=== PATIENT | male | born 1985 | race Hispanic/Latino ===

== ENCOUNTER 2023-12-03 16:25 | Emergency (ER) | payer SELFPAY ==
[2023-12-03 16:34] VITALS: BP 137/94
[2023-12-03 16:35] LABS: Glucose - Point of Care 345 mg/dl (70-99)
[2023-12-03 16:53] LABS: % Basophils 0.6 % (0-2); % Eosinophils 0.6 % (0-6); % Immature Granulocytes 0.3 % (0-0.5); % Lymphocytes 47.8 % (20.5-51.1); % Monocytes 6.9 % (1.7-9.3); % Neutrophils 43.8 % (42.2-75.2); Absolute Basophils 0.1 10^3/uL (0-0.2); Absolute Eosinophils 0.1 10^3/uL (0-0.7); Absolute Lymphocytes 3.8 10^3/uL (1.2-3.4); Absolute Monocytes 0.5 10^3/uL (0.1-0.6); Absolute Neutrophils 3.5 10^3/uL (1.4-6.5); Hematocrit 44.9 % (39.0-52.0); Hemoglobin 15.8 g/dL (13.0-18.0); Mean Corp Hgb Conc. 35.2 g/dL (33.0-37.0); Mean Corpuscular Hgb 28.1 pg (27.0-31.0); Mean Corpuscular Volume 79.9 fL (80.0-94.0); Mean Platelet Volume 10.3 fL (7.4-10.4); Nucleated Red Blood Cells % 0 % (-); Platelet Count 283 10^3/uL (130-400); Red Blood Cell Count 5.62 10^6/uL (4.70-6.10); Red Cell Dist. Width 11.9 % (11.5-14.5); White Blood Cell Count 7.9 10^3/uL (4.8-10.8)
[2023-12-03 17:03] LABS: ALT (SGPT) 19 U/L (0-50); AST (SGOT) 19 U/L (17-59); Albumin 4.7 g/dl (3.5-5.0); Alkaline Phosphatase 87 U/L (38-126); Blood Urea Nitrogen 22 mg/dl (9-20); Calcium 9.8 mg/dl (8.4-10.2); Carbon Dioxide 28 mmol/L (22-30); Chloride 97 mmol/L (98-107); Glucose 345 mg/dl (70-99); Lipase 91 U/L (23-300); Potassium 4.5 mmol/L (3.5-5.1); Sodium 134 mmol/L (135-145); Total Bilirubin 0.8 mg/dl (0.2-1.3); Total Protein 7.2 g/dl (6.3-8.2); eGFR > 60.00
[2023-12-03 17:14] LABS: Troponin I < 0.012 ng/ml
[2023-12-03 18:24] VITALS: BP 125/88
[2023-12-03 18:25] LABS: Venous Blood Gas B.E. 1.2 mmol/L (-4 to +4); Venous Blood Gas HCO3 28.1 mmol/L (22-27); Venous Blood Gas O2 Sat % 87.5 %; Venous Blood Gas pCO2 52 mmHg (35-48); Venous Blood Gas pH 7.34 (7.32-7.43); Venous Blood Gas pO2 53 mmHg (30-50)
[2023-12-03] MEDS: NSS 1000 IV (18:28)
[2023-12-03 18:46] LABS: B-Hydroxybutyrate 0.48 mmol/L (0.02-0.27)
[2023-12-03 19:00] VITALS: BP 121/90
[2023-12-03 19:39] LABS: Glucose - Point of Care 347 mg/dl (70-99)
--- NOTE | 2023-12-03 19:47 | ED.GENMED ---
History of Present Illness
General
Chief Complaint: Fainting Sensation
Source: patient
Exam Limitations: none
Time Seen by Provider: 12/03/23 18:18
Nursing documentation reviewed up to this point in time: agreed with
History of Present Illness
History of Present Illness:
The patient is a 38-year-old male with past medical history of diabetes previously was on metformin and pioglitazone. He has not seen his primary care doctor over the past few years due to insurance issues. He claims that he is now currently
working and now does have insurance. He has had some degree of some nausea and some lightheadedness at work but he claims he has been working out and sounds he was unsure if this was from his diabetes or from overly exerting himself. Denies any
chest pain shortness of breath or additional concerns. Has been urinating more than usual and has been thirsty.
Review of Systems
Review of Systems
Allergies reviewed?: Yes
All Other Systems: ROS reviewed and negative except as documented in HPI and ROS
Phy Exam
Physical Exam
Physical Exam:
GENERAL: Alert , in no apparent distress
EYE: pupils equal and reactive
NECK: Supple, no significant adenopathy.
ENT: o/p clr, mmm.
CARDIAC: Regular rate and rhythm .
LUNGS: Clear breath sounds bilaterally, no acute respiratory distress, no wheezes/rales/rhonchi
ABDOMEN: Soft, without focal tenderness, no r/g, no cvat
NEUROLOGICAL: Alert and oriented, no focal neuro deficits
SKIN: Warm and dry, skin intact.
MUSCULOSKELETAL: No edema, well perfused.
PSYCH: Normal and appropriate interaction.
Course
Orders/Labs/Results
Orders:
Orders
12/03/23 16:35
Electrocardiogram (*1) Urgent
Reason for Study: Syncope
12/03/23 16:36
EKG- Treatment ONCE
12/03/23 16:42
Complete Blood Count/With Diff Urgent
Comprehensive Metabolic Panel Urgent
Lipase Urgent
Troponin I Urgent
12/03/23 18:12
B-Hydroxybutyrate Urgent
Venous Blood Gas Urgent
%Oxygen/Room Air: room air
12/03/23 18:19
0.9% Sodium Chloride 1000 ml [Nss] 1,000 ml IV BOLUS
12/03/23 19:25
Bedside Glucose- Treatment ONCE
Abnormal Lab Results
12/03/23 12/03/23 12/03/23
16:34 16:42 18:12
MCV 79.9 L fL
(80.0-94.0)
Absolute Lymphs (auto) 3.8 H 10^3/uL
(1.2-3.4)
VBG pCO2 52 H mmHg
(35-48)
VBG pO2 53 H mmHg
(30-50)
VBG HCO3 28.1 H mmol/L
(22-27)
Sodium 134 L mmol/L
(135-145)
Chloride 97 L mmol/L
(98-107)
BUN 22 H mg/dl
(9-20)
Glucose 345 H mg/dl
(70-99)
B-Hydroxybutyrate 0.48 H mmol/L
(0.02-0.27)
POC Glucose 345 H mg/dl
(70-99)
12/03/23
19:37
MCV
Absolute Lymphs (auto)
VBG pCO2
VBG pO2
VBG HCO3
Sodium
Chloride
BUN
Glucose
B-Hydroxybutyrate
POC Glucose 347 H mg/dl
(70-99)
12/03/23 16:42
12/03/23 16:42
Vital Signs
Initial and Last Documented VS:
Initial Vital Signs
Temp Pulse Resp BP Pulse Ox
98.0 F 100 19 137/94 98
12/03/23 16:34 12/03/23 16:34 12/03/23 16:34 12/03/23 16:34 12/03/23 16:34
Last Documented Vital Signs
Temp Pulse Resp BP Pulse Ox
98.0 F 93 14 105/85 97
12/03/23 16:34 12/03/23 20:00 12/03/23 20:00 12/03/23 20:00 12/03/23 20:00
MDM/Problems Addressed
MDM/Problems Addressed:
38-year-old male presenting to the emergency department today with concerns of some lightheadedness nausea some abdominal pain intermittently. On arrival here initial heart rate was 100 but improving to the 90s. Blood pressure normal patient
generally well-appearing denies any symptoms during my assessment. Labs were obtained that showed an elevated sugar level in the 300s but negative troponin normal EKG no anion gap normal bicarb. No evidence of DKA. It was explained certainly need
to treat his diabetes to avoid any subsequent complications. He demonstrated understanding was given information for follow-up. He was started back on his pioglitazone as this was the last medication he was on otherwise, return precautions were
given.
*Critical Care Note
Total Time (30-74mins, 75-104mins- exclusive of procedures): Not Applicable
ED Attending Note
-
Portions of this chart may have been created with voice recognition software.� Occasional wrong word or��sound alike� substitutions may have occurred due to the inherent limitations of voice recognition software.
Discharge Plan
Departure
Patient Disposition: Home (Routine Discharge)
Date of Disposition: 12/03/23
Time of Disposition: 19:48
Patient with high blood pressure during this ER visit?: No
Condition: Good
Covid-19: Not Applicable
Discharge Problem:
Diabetes
Instructions: Diabetes and diet
Prescriptions:
New
pioglitazone 15 mg tablet
15 mg PO DAILY Qty: 14 0RF
Referrals:
[facility] [Provider Group]
[facility] [Provider Group]
Stand Alone Forms: Return to Work
Activity Restrictions/Additional Instructions:
You came to the emergency department today with concerns of elevated blood sugar level. Please follow closely with the resident clinic within the next few days for reassessment please take the pioglitazone to help with your sugar level.
Immediately return for any worsening, new or concerning symptoms.
Interventions
Interventions:
*Risk Screen - Suicide Last Done: 12/03/23 20:22
*General Assessment Last Done: 12/03/23 20:22
*Neglect/Abuse Screening Last Done: 12/03/23 20:22
ED- Fall Risk Assessment Last Done: 12/03/23 18:30
*ED COVID-19 Vaccine History Last Done: 12/03/23 20:22
*Nursing Disposition Last Done: 12/03/23 20:17
ED- Cardiac Assessment Last Done: 12/03/23 18:30
ED- Neurological Assessment Last Done: 12/03/23 18:30
Discharge Date and Time
Print Language: MACEDONIAN
[2023-12-03 20:00] VITALS: BP 105/85
== END 2023-12-03 20:22 | disposition home or self-care (01) ==
LOC: EMR 16:25
PROVIDERS: Emergency Medicine; EMERGENCY PHYSICIAN Emergency Medicine
DX: E11.65 Type 2 diabetes mellitus with hyperglycemia (principal); R42 Dizziness and giddiness; R11.0 Nausea; R10.9 Unspecified abdominal pain; Z91.141 Patient's other noncompliance with medication regimen due to financial hardship
CPT/HCPCS: 99284; 96360; 80053; 82010; 82805; 82962; 83690; 84484; 85025; 93005

== ENCOUNTER 2024-05-26 04:30 | Inpatient (IN) | payer BC, SELFPAY ==
[2024-05-26 01:05] VITALS: BMI 22.8
--- NOTE | 2024-05-26 01:20 | ED.MUSCINJ ---
HPI-Injury
General
Chief Complaint: Musculo-Skeletal Complaint
Source: patient
Exam Limitations: none
Time Seen by Provider: 05/26/24 01:07
Nursing documentation reviewed up to this point in time: agreed with
History of Present Illness-Injury
Initial Injury comments:
Pleasant 38-year-old male presents via private vehicle after his right great toe started to bleed. He is diabetic but has not been on medications because he is out of insurance. He is concerned for the last day his toe has been bleeding but prior,
there is with swelling. Denies fever or chills. He does have left shoulder pain that is chronic and has been there for months. Patient states that he does not follow-up with a family doctor.
Review of Systems
Review of Systems
Allergies reviewed?: Yes
All Other Systems: ROS reviewed and negative except as documented in HPI and ROS
Constitutional: Reports fatigue
Musculoskeletal: Reports joint pain and joint swelling
Hematologic/Lymphatic: Reports bleeding
Psychiatric: Reports anxiety
Phy Exam
General Physical Exam
General Presentation: well appearing
General age: appears stated age
General Skin: warm and dry
Cardiovascular Exam
Cardiovascular Exam: regular rate/rhythm
Neurological Exam
Neurological Exam: alert and oriented x3
Musculoskeletal Exam
Musculoskeletal Exam: full ROM and neck pain
Skin Exam
Skin Exam: normal color and warm/dry
Psychiatric Exam
Psychiatric Exam: normal mood/affect
Injury Course
Orders/Labs/Results
Orders:
Orders
05/26/24 01:18
CR Foot - Right Min 3 Views Urgent
Comment:
Reason For Exam: DFU r great toe
05/26/24 02:04
Piperacillin/Tazo 4.5 Gram [Zosyn] 4.5 gram in 100 ml IV NOW
05/26/24 03:44
Vancomycin [Vancocin] 2,000 mg 0.9% Sodium Chloride 500 ml [Nss] 500 ml IV NOW
05/26/24 03:58
Add On- LAB Stat
Tests Added?: ESR, CRP
05/26/24 04:02
Admit/Transfer Patient As Directed
Co-Sign Provider:
Level of Care: Inpatient admission
Assign to:: Medical/Surgical
Physician / Group: hospitalist
Diagnosis: foot infection
Reason for Hospitalization: diabetic foot ulcer
Expected length of stay greater than two midnights?: Yes
ELOS- Estimated Length of Stay in days: 2
I certify the patient meets the requirements for IP care: Yes
PRN Pain Medication Management As Directed
May give lesser potent ordered pain med per pt: Yes
preference::
Protocol:: Medication orders for pain may be administered in a
manner that supports deferring to patient preference
when the pt is:
- Requesting an ordered lesser potent pain medication.
Least to most potent pain medications are defined
as: acetaminophen < NSAID < tramadol < opioids
(morphine, oxycodone, hydromorphone).
- Requesting a lesser dose of the same medication IF
ORDERED.
- Requesting a less intrusive route of administration
if both routes are prescribed by the provider (PO <
IV).
05/26/24 04:03
Code Status As Directed
Resuscitation Status: Full Code
05/26/24 04:07
Add On- LAB Stat
Tests Added?: Hemoglobin A1c
05/26/24 04:21
Complete Blood Count/With Diff Urgent
Comprehensive Metabolic Panel Urgent
Erythrocyte Sed Rate Urgent
Comment: ADDED
Glycohemoglobin (HgbA1c) Urgent
Lactic Acid Q4H
Comment: CANCEL 2nd LACTIC ACID IF 1st LACTIC ACID IS LESS THAN 2
PTT Urgent
Procalcitonin Urgent
PCT Algorithmm Indication: Sepsis
Prothrombin Time Urgent
Influenza A+B Rapid Molecular Urgent
WILTON Source: Nasal Swab
Specimen Description:
05/26/24 04:24
C-Reactive Protein Urgent
Comment: ADDED
COVID-19 Antigen Urgent
Source: Nasal Swab
05/26/24 05:30
Lactic Acid Q4H
Comment: CANCEL 2nd LACTIC ACID IF 1st LACTIC ACID IS LESS THAN 2
Abnormal Lab Results
05/26/24 05/26/24
04:21 04:24
Absolute Lymphs (auto) 3.6 H 10^3/uL
(1.2-3.4)
Absolute Monos (auto) 0.8 H 10^3/uL
(0.1-0.6)
Sodium 134 L mmol/L
(135-145)
Chloride 95 L mmol/L
(98-107)
Creatinine 0.6 L mg/dL
(0.7-1.3)
Glucose 299 H mg/dl
(70-99)
C-Reactive Protein 30.00 H mg/L
(0.0-10.00)
05/26/24 04:21
05/26/24 04:21
*Critical Care Note
Total Time (30-74mins, 75-104mins- exclusive of procedures): Not Applicable
Data Reviewed
Review of Other/Old Records Reveals: Other (EKG)
Source: patient
Patient Management
Social determinants of health affecting care: Living situation, Poor outpatient follow-up and Poor social support
Discussion with other providers: Hospitalist
Update Note
Update Note:
Pt has no PCP or insurance. No diabetic meds. X-ray does not show osteomyelitis. Patient does not have diabetic medications. Patient to be brought into the hospital for continued treatment and observation.
ED Attending Note
-
Portions of this chart may have been created with voice recognition software.� Occasional wrong word or��sound alike� substitutions may have occurred due to the inherent limitations of voice recognition software.
Discharge Plan
Departure
Patient Disposition: Admit
Date of Disposition: 05/26/24
Time of Disposition: 02:09
Admit to: Med/Surg
Presentation/result/management discussed w/ accepting MD/DO: Hospitalist
Condition: Fair
Discharge Problem:
Diabetic foot ulcer
Interventions
Interventions:
*Risk Screen - Suicide Last Done: 05/25/24 22:11
*General Assessment Last Done: 05/25/24 22:11
*Neglect/Abuse Screening Last Done: 05/25/24 22:11
ED- Fall Risk Assessment Last Done: 05/26/24 01:05
*ED COVID-19 Vaccine History Last Done: 05/25/24 22:11
ED-Musculoskeletal Assessment Last Done: 05/26/24 01:05
--- NOTE | 2024-05-26 03:52 | HPS.HSE ---
Family Physician
-
Family Physician: * NONE
Chief Complaint
-
Right great toe swelling and erythema
History of Present Illness
This is a 38-year-old male with past medical history of hao-jvzuvde-atjeospyh diabetes who presents to the emergency department with acute onset of drainage and swelling from the right great toe.
He reports that he has had eschar with a central dark spot similar to his left side on the right side for several weeks. He had no complaints in that foot for prior to today. Reports that he suddenly had swelling drainage from the toe. He
expressed bloody material and thought that his symptoms would improve however he continues to have numbness and ongoing drainage while at work so he came to the emergency department for evaluation.
He denies having any fevers or chills.
Patient has not been taking any diabetic control due to lack of insurance. He was recently discharged from the ED with pioglitazone but has not filled it due to insurance issues.
In the emergency department he was afebrile, blood pressure was 105/80 with a pulse of 110. A x-ray of the foot shows no foreign body and no evidence of subcutaneous gas or osteomyelitis. Labs pending
Medical History
Past Medical History
Past Medical History: Reports NIDDM
Past Surgical History: Reports Orthopedic
Social History
Tobacco: Non-smoker
Alcohol: Occasional
Drug: Marijuana
Personal: Single
Living: With Family
Employment: Employed
Family History
Family History: Diabetes
Allergies / Home Medications
Allergies reflects when Allergies were last updated in [employer].
Home Medications with original date entered in [employer]
Allergy/Medication List:
Allergies
Allergy/AdvReac Type Severity Reaction Status Date / Time
No Known Allergies Allergy Unverified 12/03/23 16:31
Home Medications
pioglitazone 15 mg tablet 15 mg PO DAILY #14 tabs 12/03/23
Review of Systems
-
Constitutional: Reports No Symptoms
EENT: Reports No Symptoms
Respiratory: Reports No Symptoms
Cardiac: Reports No Symptoms
Abdomen/GI: Reports No Symptoms
: Reports No Symptoms
Musculoskeletal: Reports Joint Pain and Joint Swelling
Skin: Reports No Symptoms
Neurological: Reports No Symptoms
Endocrine: Reports No Symptoms
Hematologic/Lymphatic: Reports No Symptoms
Psych: Reports No Symptoms
Physical Exam
Vital Signs
Vital Signs
Temp Pulse Resp Pulse Ox
97.9 F 110 16 98
05/25/24 22:11 05/25/24 22:11 05/25/24 22:11 05/25/24 22:11
Physical Exam
General: Well Developed, Well Nourished, No Apparent Distress and Comfortable
HEENT: NormoCephalic, Anicteric, Moist mucous membranes and Atraumatic
Respiratory: Clear
Cardiac: S1/S2 and Regular Rhythm
Breast: Deferred by me
GI: Soft, Non Tender and Non Distended
Rectal: Deferred by Provider
Genito-urinary: Deferred by me
Musculoskeletal: No Clubbing, No Cyanosis, No Edema and Other (Right foot great toe ulcer with small abscess and surrounding cellulitis)
Neuro: AO x 3
Hematologic/Lymphatic: No Lymphadenopathy
Psych: Calm
Data Reviewed
-
Diagnostic Radiology: Image Personally Visualized and interpreted
Old Records: Reviewed
Impression/Plan
-
IMPRESSION:
38-year-old with right toe diabetic foot ulcer and likely infection. No evidence of osteomyelitis on x-ray. There is surrounding erythema c/w with mild cellulitis. Overal is a moderate diabetic foot infection in patient with low risk of resistant
bacteria.
PLAN:
1. Diabetic foot infection
- admit to med/surg
- mrsa testing
- Vanc/unasyn for now
- check inflammatory markers
- no current evidence of osteo but there is abscess and cellulitis. ID consult. Podiatry consult (has no outpatient dental office receptionist)
2. DM II
- pioglitazone
- sliding scale insulin
DVT PPX - lovenox sq
Code status - Full Code
[2024-05-26] MEDS: ZOSYN 100 IV (04:29)
[2024-05-26 04:33] VITALS: BP 118/78
[2024-05-26 04:38] LABS: % Basophils 0.7 % (0-2); % Eosinophils 1.3 % (0-6); % Immature Granulocytes 0.3 % (0-0.5); % Lymphocytes 40.2 % (20.5-51.1); % Monocytes 8.4 % (1.7-9.3); % Neutrophils 49.1 % (42.2-75.2); Absolute Basophils 0.1 10^3/uL (0-0.2); Absolute Eosinophils 0.1 10^3/uL (0-0.7); Absolute Lymphocytes 3.6 10^3/uL (1.2-3.4); Absolute Monocytes 0.8 10^3/uL (0.1-0.6); Absolute Neutrophils 4.4 10^3/uL (1.4-6.5); Hematocrit 46.5 % (39.0-52.0); Mean Corp Hgb Conc. 34.4 g/dL (33.0-37.0); Mean Corpuscular Hgb 27.7 pg (27.0-31.0); Mean Corpuscular Volume 80.6 fL (80.0-94.0); Mean Platelet Volume 9.8 fL (7.4-10.4); Nucleated Red Blood Cells % 0 % (-); Platelet Count 269 10^3/uL (130-400); Red Blood Cell Count 5.77 10^6/uL (4.70-6.10); Red Cell Dist. Width 11.9 % (11.5-14.5)
[2024-05-26 04:54] LABS: Lactic Acid 0.9 mmol/L (0.7-2.0)
[2024-05-26 04:56] LABS: ALT (SGPT) 21 U/L (0-50); AST (SGOT) 20 U/L (17-59); Albumin 4.4 g/dl (3.5-5.0); Alkaline Phosphatase 88 U/L (38-126); Blood Urea Nitrogen 18 mg/dl (9-20); Calcium 9.3 mg/dl (8.4-10.2); Carbon Dioxide 24 mmol/L (22-30); Chloride 95 mmol/L (98-107); Estimated Creatinine Clearance > 125 ml/min; Glucose 299 mg/dl (70-99); INR 0.95; PT 13.1 Sec (11.4-14.6); Sodium 134 mmol/L (135-145); Total Bilirubin 0.5 mg/dl (0.2-1.3); eGFR > 60.00
[2024-05-26 04:57] LABS: APTT 28.4 Sec (23.4-35.0)
[2024-05-26 05:08] LABS: COVID-19 Antigen Negative (Negative)
[2024-05-26 05:23] LABS: Procalcitonin 0.06 ng/ml (0.0-0.25)
[2024-05-26] MEDS: VANCOCIN 540 MG IV (05:25)
[2024-05-26 06:58] LABS: Erythrocyte Sed Rate 17 mm/hour (0-20)
[2024-05-26] MEDS: FLUSH (NSS) 1 FLUSH IV (07:31)
[2024-05-26 08:45] LABS: Glucose - Point of Care 283 mg/dl (70-99)
[2024-05-26] MEDS: ACTOS 15 MG PO (09:00)
[2024-05-26] MEDS: NOVOLOG FLEXPEN-LOW RESISTANCE 3 UNITS SC (09:00)
[2024-05-26 09:05] VITALS: BP 127/76
[2024-05-26] MEDS: UNASYN IV (10:05)
--- NOTE | 2024-05-26 10:34 | WOUNDNOTE ---
RIGHT GREAT TOE
--- NOTE | 2024-05-26 10:35 | WOUNDNOTE ---
RIGHT GREAT TOE
--- NOTE | 2024-05-26 10:35 | WOUNDNOTE ---
RIGHT GREAT TOE
--- NOTE | 2024-05-26 10:35 | WOUNDNOTE ---
LEFT GREAT TOE
--- NOTE | 2024-05-26 10:47 | WOUNDNOTE ---
WO RN note: Patient admitted with right toe pain, swelling
See H&P for complete history.
PMH: Diabetes
Wound Location and type/assessment: Patient admitted with right pain, swelling. Patient reports draining has stopped and swelling has decreased since start of antibiotics. At time of assessment wound was dry with a .1x.1 open, pink area. We
discussed his footwear as he also has a scabbed left great toe. Patient thinks the footwear he wears for work is too small.
Appetite: Good
Pressure redistribution devices in place:
Plan: Wound was cleaned with Vashe moistened gauze and Xeroform and spandage applied for easy assessment of wound. Diabetes and impact on health was discussed at length. He stated his insurance just started in 2024 and he is agreeable to follow up
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 Will confirm orders with hospitalist and update nurse.
Updated care plan and will follow as needed.
Note to case management of equipment requested for discharge:
Recommend follow up at wound care center upon discharge.
--- NOTE | 2024-05-26 11:06 | PHA.VAN.IN ---
Assessment
- Assessment
Renal Function: Appears similar to baseline
Maximum Temperature: 98.2
Minimum Temperature: 97.9
AUC Dosing Plan
- Empiric Dosing
Initial / Loading Dose: 2000mg on 05/26 at 0525
Maintenance Regimen: 750mg Q8H
Estimated AUC (mcg*h/mL): 434
Estimated Peak (mcg*h/mL): 25.6
Estimated Trough (mcg/ml): 12
Estimated Half Life (H): 6.4
- Monitoring
No levels ordered at this time: Consider levels in next few days
Pharmacokinetics Vancomycin I
- -
Patient Age: 38
Patient Sex: Male
Vancomycin Day #: 1
Indication: Skin And Soft Tissue
Requesting Provider: TAHIR
Pertinent Antimicrobial Allergies:
NKDA
Height / Weight:
Height 5 ft 10 in
Actual Weight 72.2 kg
Pertinent Past Medical History: DM
- Vital Signs / Lab Results
Temp Pulse Resp BP Pulse Ox
98.2 F 88 16 127/76 98
05/26/24 04:33 05/26/24 04:33 05/26/24 04:33 05/26/24 09:05 05/26/24 09:05
Lab Results - Hematology
05/26/24
04:21
WBC 9.0
Lab Results - Chemistry
05/26/24
04:21
BUN 18
Creatinine 0.6 L
Estimated Creat Clear > 125
Albumin 4.4
05/26/24 05/26/24
04:21 05:30
Lactic Acid 0.9 Cancelled
Microbiology Results
05/26/24 04:21 Influenza Types A & B (TRUDY) - Final
Nasal Swab Negative for Influenza A & B, NAAT
Negative results must be combined with clinical observations
and patient history.
Nucleic Acid Amplification test (NAAT)performed on the
[employer] platform.
[2024-05-26 11:32] LABS: Glycohemoglobin (HgbA1c) 12.8 % (4.0-5.6)
[2024-05-26 12:00] VITALS: BP 128/86
[2024-05-26 12:31] VITALS: BP 128/86; BMI 23.1
[2024-05-26] MEDS: NOVOLOG FLEXPEN-LOW RESISTANCE 4 UNITS SC (13:01)
[2024-05-26 13:10] LABS: Glucose - Point of Care 312 mg/dl (70-99)
--- NOTE | 2024-05-26 13:30 | CON.ID ---
Consultation
-
Date/Time Consultation Requested: May 26, 2024 3445
Date/Time Consultation Performed: May 26, 2024 1330
Requesting Provider: Dr. merissa Salcedo
Performing Provider: Dr. Niurka Hand
Reason for Consultation: Diabetic foot infection
Chief Complaint / Past History
Chief Complaint
Toe wound drainage
History of Present Illness
38-year-old male with history of uncontrolled diabetes mellitus currently not on therapy due to lack of insurance who presented to the ER May 25 with draining toe wound. Patient reports that he has a callus on the bottom of his right great toe
with a small scab for long time. 2 days ago the toe became very swollen red and painful. There was a blood blister over the previous scab. His coworker instructed him to push the fluid out. He applied alcohol and then with a gauze, expressed
blood mixed with clear fluid. After work he removed his shoe and noted worsening swelling and redness. He came to the ER. No fevers or chills. He denies neuropathy. He was given vancomycin, 1 dose of Zosyn, then Unasyn. Unasyn changed to
cefepime and metronidazole today. Patient reports since being on antibiotic, the toe has significantly improved. Redness has decreased. No significant drainage now. MRI negative for osteomyelitis. 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 His insurance has now kicked in since the new year.
Past History
Additional Past Medical History:
DM
Allergy History:
No Known Allergies Allergy (Unverified 12/03/23 16:31)
Medications Reviewed: Yes
Current Antibiotics:
Vancomycin
cefepime
metronidazole
Social History
Tobacco: Non-Smoker
Alcohol: Occasional
Drug: Marijuana
Personal: Single
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
Family History
Family History: Not Pertinent
Review of Systems
Review of Systems
General: Negative Fever, Chills or Change in Appetite
Cardiovascular: Negative Chest Pain or Dyspnea
Respiratory: Negative Dyspnea or Cough
Gasteroenterology: Negative Nausea, Vomiting or Diarrhea
Genital / Urological: Negative Dysuria or Flank Pain
Endocrine: Negative Weakness
Skin / Hair / Nails: Negative Rash
All systems: All other systems were reviewed and were negative
Vital Signs
Temp Pulse Resp BP Pulse Ox
97.9 F 85 16 128/86 100
05/26/24 12:00 05/26/24 12:00 05/26/24 12:00 05/26/24 12:00 05/26/24 12:00
Physical Exam
Physical Exam
Constitutional: No Acute Distress and Comfortable
Eyes: No Conjunctival Hemorrhage and Sclera Anicteric
Cardiovascular: Regular Rate and S1/S2
Pulmonary: Clear
Gastrointestinal: Soft, Non Tender, Non Distended and Normal Bowel Sounds
Genito-Urinary: Negative CVA Tenderness
Extremities: Pulses (Strong dorsalis pedal pulses bilaterally); Negative Edema
Wound: Other (Plantar aspect of right hallux, small wound with granulation tissue at base, + surrounding erythema extending to dorsal toe and first met head)
Neurological: AO x 3
Lab / Diagnostic Study Results
05/26/24 04:21
05/26/24 04:21
Abs Immat Gran (auto) 0.0 10^3/uL (0-0.05) 05/26/24 04:21
Absolute Neuts (auto) 4.4 10^3/uL (1.4-6.5) 05/26/24 04:21
Absolute Lymphs (auto) 3.6 10^3/uL (1.2-3.4) H 05/26/24 04:21
Absolute Monos (auto) 0.8 10^3/uL (0.1-0.6) H 05/26/24 04:21
Absolute Basos (auto) 0.1 10^3/uL (0-0.2) 05/26/24 04:21
Immature Gran % 0.3 % (0-0.5) 05/26/24 04:21
Neutrophils % 49.1 % (42.2-75.2) 05/26/24 04:21
Lymphocytes % 40.2 % (20.5-51.1) 05/26/24 04:21
Monocytes % 8.4 % (1.7-9.3) 05/26/24 04:21
Eosinophils % 1.3 % (0-6) 05/26/24 04:21
Basophils % 0.7 % (0-2) 05/26/24 04:21
ESR 17 mm/hour (0-20) 05/26/24 04:21
PT 13.1 Sec (11.4-14.6) 05/26/24 04:21
INR 0.95 05/26/24 04:21
Lactic Acid Cancelled 05/26/24 05:30
C-Reactive Protein 30.00 mg/L (0.0-10.00) H 05/26/24 04:24
Procalcitonin 0.06 ng/ml (0.0-0.25) 05/26/24 04:21
Microbiology Results
Micro:
05/26/24 04:21 Influenza Types A & B (TRUDY) - Final
Nasal Swab Negative for Influenza A & B, NAAT
Negative results must be combined with clinical observations
and patient history.
Nucleic Acid Amplification test (NAAT)performed on the
[employer] platform.
05/26/24 MRI LE: Superficial localized soft tissue edema versus a skin blister at the medial aspect of the distal first toe. Recommend direct visualization. Mild bone marrow edema in the first distal phalanx without T1 hypointense marrow replacement.
Reactive bone marrow edema would be favored over the early changes of acute osteomyelitis.
Assessment / Plan
# Moderate diabetic foot infection of the right great toe
# Uncontrolled diabetes mellitus, A1c 12.8
- MRI no osteomyelitis
- Can continue Vancomycin, cefepime, metronidazole for now.
- recommend tight glucose control.
--- NOTE | 2024-05-26 13:40 | W.PN.HOSP.TC ---
Today's Communication/Plan
-
Podiatry eval
ID eval
Start Insulin
Assessment / Plan
Assessment / Plan
Right big toe swelling and erythema
Foot x-ray reviewed by me- soft tissue swelling with subcutaneous gas no osteo.
MRI- Superficial localized soft tissue edema versus a skin blister at the medial aspect of the distal first toe. Recommend direct visualization.
Mild bone marrow edema in the first distal phalanx without T1 hypointense marrow replacement. Reactive bone marrow edema would be favored over the early changes of acute osteomyelitis.
Pleasant
Awake alert oriented
Cardiovascular system S1-S2 appreciated
Chest clear to auscultation
Right foot big toe with an ulcer enlargement of the big toe and edema noted
Dry ulcer on the medial aspect of the left big toe
# Diabetic foot infection
Started on vancomycin
Change Unasyn to cefepime
MRI of the foot-with early osteomyelitis of the distal phalanx
ID and podiatry has been consulted
May need partial amputation versus long-term antibiotics
Tight control of blood sugars discussed with the patient
Patient may need fitted shoes through podiatry office
# Diabetes-on pioglitazone as outpatient
Could not tolerate metformin
Stop pioglitazone
Start Lantus and NovoLog
Accu-Cheks and sliding scale coverage
Diabetic education, dietary consultation
Teach patient how to do insulin
# Mild hyponatremia-follow likely secondary to elevated sugars
# DVT prophylaxis-Lovenox
# Full code
Discussed with nursing
Long discussion about complications of diabetes and how he needs to take care of it. Patient did not have insurance and got insurance on May 24 therefore determined to take care of himself.
Anticipated Discharge: > 48 hours
Subjective/Interval History
-
Date of Service: May 26, 2024
Objective Data
-
Labs:
Laboratory Results
05/26/24
04:21
WBC 9.0
Hgb 16.0
Hct 46.5
Plt Count 269
PT 13.1
INR 0.95
APTT 28.4
Sodium 134 L
Potassium 4.0
Chloride 95 L
Carbon Dioxide 24
BUN 18
Creatinine 0.6 L
Glucose 299 H
Calcium 9.3
Total Bilirubin 0.5
AST 20
ALT 21
Alkaline Phosphatase 88
Vital Signs:
Vital Signs
Temp Pulse Resp BP Pulse Ox
97.9 F 85 16 128/86 100
05/26/24 12:00 05/26/24 12:00 05/26/24 12:00 05/26/24 12:00 05/26/24 12:00
[2024-05-26] MEDS: NOVOLOG FLEXPEN 5 UNITS SC ×2 (14:03→18:00)
--- NOTE | 2024-05-26 14:22 | CM ---
CM Consult completed; Attending Notified
Per [facility], Novolog Insulin is covered by patient's insurance; Lantus is not covered; alternative for Lantus given to Pharmacy is Semglee
[2024-05-26] MEDS: FLAGYL 500 MG 100 IV ×2 (15:02→21:43)
[2024-05-26 16:00] VITALS: BP 139/85
--- NOTE | 2024-05-26 16:15 | CM ---
Addendum entered by Isabela Rivera 05/26/24 16:31:
Insurance information sent to Admissions
Original Note:
Met with patient at bedside in 1 Acute
Family Physician: none at this time; employer provided a list of PCPs in his insurance network
Pharmacy verified: [facility] @ [address], [place]
Patient lives with his significant other and 2 children in an apartment 6 steps to enter bldg then 4 steps down to apartment; bath has tub w/ shower
PLOF; reported he was independent with ambulation, stairs, and ADLs;
Will transport self home
NO history of SNF or Home Health utilization
NO DME
Diabetes RN Educator provided a Glucometer
Plan: Discharge to home when medically stable
[2024-05-26] MEDS: MAXIPIME 1000 MG IV (16:27)
[2024-05-26] MEDS: VANCOCIN 150 IV ×2 (16:28→23:15)
[2024-05-26] MEDS: STERILE WATER FOR INJECTION 10 ML IV (16:28)
[2024-05-26] MEDS: NOVOLOG FLEXPEN-LOW RESISTANCE 2 UNITS SC (18:00)
[2024-05-26] MEDS: LOVENOX 40 MG SC (18:00)
--- NOTE | 2024-05-26 18:07 | PTCARENOTE ---
Met with [facility] to educate him on glucose monitoring and insulin administration. He was diagnosed a few years ago with type 2 diabetes but not following any practitioner or checking blood sugars due to lack of insurance. He had stopped taking his
Metformin after recently starting it due to diarrhea. We reviewed diabetes and glucose monitoring. I gave him a One Touch Verio meter and he demonstrated proper technique doing a fingerstick. Discussed normal glucose ranges. Instructed him on types
of insulin and injection technique with the insulin pens. Will encourage him to do all injections will admitted. Discussed hypoglycemia recognition and treatment. Written material provided for reinforcement. Information for outpatient diabetes
education provided.
[2024-05-26 18:10] LABS: Glucose - Point of Care 213 mg/dl (70-99)
[2024-05-26 21:35] LABS: Glucose - Point of Care 209 mg/dl (70-99)
[2024-05-26] MEDS: LANTUS 0.12 UNITS SC (21:42)
[2024-05-26] MEDS: TYLENOL 650 MG PO (21:54)
[2024-05-26 23:36] VITALS: BP 108/71
[2024-05-27] MEDS: MAXIPIME 1000 MG IV ×3 (00:14→16:37)
[2024-05-27] MEDS: STERILE WATER FOR INJECTION 10 ML IV ×3 (00:14→16:37)
[2024-05-27] MEDS: FLAGYL 500 MG 100 IV ×3 (05:10→21:09)
[2024-05-27] MEDS: VANCOCIN 150 IV ×3 (06:10→22:20)
[2024-05-27 07:00] VITALS: BP 118/74
[2024-05-27 07:50] LABS: Blood Urea Nitrogen 17 mg/dl (9-20); Carbon Dioxide 29 mmol/L (22-30); Chloride 97 mmol/L (98-107); Estimated Creatinine Clearance > 125 ml/min; Glucose 239 mg/dl (70-99); Potassium 4.5 mmol/L (3.5-5.1); Sodium 136 mmol/L (135-145); eGFR > 60.00
--- NOTE | 2024-05-27 09:06 | PHA.VAN.FU ---
Vancomycin Assessment / Plan
- Assessment
Renal Function: SCR Increasing
In the past 24 hrs, patient has been: Afebrile
Concomitant Antimicrobials: Cefepime, metronidazole
- Dosing Plan
Continue: Vanc 750mg IV q8H
- Monitoring Plan
Peak Level: 1/5 at 0030
Trough Level: 1/5 at 0530
- Follow Up
Pharmacy will continue to follow.
Vancomycin Follow UP
- -
Patient Age: 38
Patient Sex: Male
Vancomycin Day #: 2
Indication: Skin And Soft Tissue
Requesting Provider: TAHIR
Pertinent Antimicrobial Allergies:
NKDA
Height / Weight:
Height 5 ft 10 in
Actual Weight 73.17 kg
Pertinent Past Medical History: DM
- Vital Signs / Lab Results
Temp Pulse Resp BP Pulse Ox
97.7 F 79 18 118/74 97
05/27/24 07:00 05/27/24 07:00 05/27/24 07:00 05/27/24 07:00 05/27/24 07:00
Lab Results - Hematology
05/26/24
04:21
WBC 9.0
Lab Results - Chemistry
05/26/24 05/27/24
04:21 06:36
BUN 18 17
Creatinine 0.6 L 0.7
Estimated Creat Clear > 125 > 125
Albumin 4.4
05/26/24 05/26/24
04:21 05:30
Lactic Acid 0.9 Cancelled
Microbiology Results
05/26/24 04:21 Influenza Types A & B (TRUDY) - Final
Nasal Swab Negative for Influenza A & B, NAAT
Negative results must be combined with clinical observations
and patient history.
Nucleic Acid Amplification test (NAAT)performed on the
[employer] platform.
[2024-05-27] MEDS: ACTOS 15 MG PO (09:35)
[2024-05-27] MEDS: NOVOLOG FLEXPEN-LOW RESISTANCE 3 UNITS SC (09:36)
[2024-05-27] MEDS: NOVOLOG FLEXPEN 7 UNITS SC ×3 (09:36→17:41)
[2024-05-27] MEDS: NOVOLOG FLEXPEN SC (09:42)
[2024-05-27 09:50] LABS: Glucose - Point of Care 268 mg/dl (70-99)
[2024-05-27 12:07] LABS: Glucose - Point of Care 160 mg/dl (70-99)
--- NOTE | 2024-05-27 12:31 | W.PN.HOSP.TC ---
Today's Communication/Plan
-
Increase NovoLog and Lantus
Podiatry evaluation
Continue antibiotics
Note for work given
Assessment / Plan
Assessment / Plan
Right big toe swelling and erythema
Foot x-ray reviewed by me- soft tissue swelling with subcutaneous gas no osteo.
MRI- Superficial localized soft tissue edema versus a skin blister at the medial aspect of the distal first toe. Recommend direct visualization.
Mild bone marrow edema in the first distal phalanx without T1 hypointense marrow replacement. Reactive bone marrow edema would be favored over the early changes of acute osteomyelitis.
Pleasant
Awake alert oriented
Cardiovascular system S1-S2 appreciated
Chest clear to auscultation
Right foot big toe with an ulcer enlargement of the big toe and edema noted
Dry ulcer on the medial aspect of the left big toe
# Diabetic foot infection
Started on vancomycin
Change Unasyn to cefepime
MRI of the foot-with early osteomyelitis of the distal phalanx?
ID eval [id number]
Podiatry eval
Tight control of blood sugars discussed with the patient
Patient may need fitted shoes through podiatry office
# Diabetes-on pioglitazone as outpatient
Could not tolerate metformin
Stop pioglitazone
Start Lantus and NovoLog
Accu-Cheks and sliding scale coverage
Diabetic education, dietary consultation
Teach patient how to do insulin
# Mild hyponatremia-follow likely secondary to elevated sugars
# DVT prophylaxis-Lovenox
# Full code
Discussed with nursing at bed side
Long discussion about complications of diabetes and how he needs to take care of it. Patient did not have insurance and got insurance on May 24 therefore determined to take care of himself.
Anticipated Discharge: Within 24 hours
Subjective/Interval History
-
Date of Service: May 27, 2024
Objective Data
-
Labs:
Laboratory Results
05/27/24
06:36
Sodium 136
Potassium 4.5
Chloride 97 L
Carbon Dioxide 29
BUN 17
Creatinine 0.7
Glucose 239 H
Calcium 9.0
Vital Signs:
Vital Signs
Temp Pulse Resp BP Pulse Ox
97.7 F 79 18 118/74 97
05/27/24 07:00 05/27/24 07:00 05/27/24 07:00 05/27/24 07:00 05/27/24 07:00
I&O
05/26/24 05/27/24 05/28/24
06:59 06:59 06:59
Intake Total 980 / 980
Balance 980 / 980
[2024-05-27] MEDS: NOVOLOG FLEXPEN-LOW RESISTANCE 1 UNITS SC (12:58)
--- NOTE | 2024-05-27 13:05 | W.PN.ID1 ---
Date of Service
Date of Service: May 27, 2024
Today's Communication
If dc home today, can transition to Augmentin 875mg po bid and doxycycline 100mg pi bid through 06/01/24.
Assessment / Plan
# Moderate diabetic foot infection of the right great toe
# Uncontrolled diabetes mellitus, A1c 12.8
- MRI no osteomyelitis
-Cellulitis improving
- Can transition Vancomycin, cefepime, metronidazole for now to Augmentin 875mg po bid and doxycycline 100mg pi bid through 06/01/24.
- recommend tight glucose control.
Chief Complaint
-: Cellulitis
Subjective / Review of Systems
Toe is better.
c/o left shoulder pain (work-related) x several weeks. For XRAY
Vital Signs / Physical Exam
Vital Signs
Vital Signs
Temp Pulse Resp BP Pulse Ox
97.7 F 79 18 118/74 97
05/27/24 07:00 05/27/24 07:00 05/27/24 07:00 05/27/24 07:00 05/27/24 07:00
Physical Exam
Constitutional: No Acute Distress and Comfortable
Musculoskeletal: Other (left shoulder no erythema/warmth/effusion)
Wound: Other (Plantar aspect of right hallux, small wound with dried blood, decreased surrounding erythema extending to dorsal toe and first met head)
Neurological: AO x 3
Objective Data
Lab Data
Lab Results
05/26/24 04:21
05/27/24 06:36
ESR 17 mm/hour (0-20) 05/26/24 04:21
PT 13.1 Sec (11.4-14.6) 05/26/24 04:21
INR 0.95 05/26/24 04:21
APTT 28.4 Sec (23.4-35.0) 05/26/24 04:21
Estimated Creat Clear > 125 ml/min 05/27/24 06:36
Lactic Acid Cancelled 05/26/24 05:30
Total Bilirubin 0.5 mg/dl (0.2-1.3) 05/26/24 04:21
AST 20 U/L (17-59) 05/26/24 04:21
ALT 21 U/L (0-50) 05/26/24 04:21
Alkaline Phosphatase 88 U/L (38-126) 05/26/24 04:21
C-Reactive Protein 30.00 mg/L (0.0-10.00) H 05/26/24 04:24
Most recent labs reviewed.
Micro Results:
05/26/24 16:08 MRSA Screen - Pending
Nose
05/26/24 04:21 Influenza Types A & B (TRUDY) - Final
Nasal Swab Negative for Influenza A & B, NAAT
Negative results must be combined with clinical observations
and patient history.
Nucleic Acid Amplification test (NAAT)performed on the
[employer] platform.
05/26/24 MRI LE: Superficial localized soft tissue edema versus a skin blister at the medial aspect of the distal first toe. Recommend direct visualization. Mild bone marrow edema in the first distal phalanx without T1 hypointense marrow replacement.
Reactive bone marrow edema would be favored over the early changes of acute osteomyelitis.
[2024-05-27] MEDS: TYLENOL 650 MG PO (14:18)
[2024-05-27 15:00] VITALS: BP 122/73
[2024-05-27] MEDS: LIDOCAINE 4% PATCH 1 PATCH TOPICAL (16:37)
[2024-05-27 17:12] LABS: Glucose - Point of Care 138 mg/dl (70-99)
[2024-05-27] MEDS: NOVOLOG FLEXPEN-LOW RESISTANCE SC (17:14)
[2024-05-27] MEDS: LOVENOX 40 MG SC (17:42)
[2024-05-27] MEDS: LANTUS 0.15 UNITS SC (21:10)
[2024-05-27 21:19] LABS: Glucose - Point of Care 303 mg/dl (70-99)
[2024-05-27 23:05] VITALS: BP 109/74
[2024-05-28] MEDS: STERILE WATER FOR INJECTION 10 ML IV (00:34)
[2024-05-28] MEDS: MAXIPIME 1000 MG IV (00:34)
[2024-05-28 01:16] LABS: Vancomycin Peak 15.3 ug/ml (18-26)
[2024-05-28] MEDS: TYLENOL 650 MG PO ×2 (01:50→08:28)
[2024-05-28] MEDS: FLAGYL 500 MG 100 IV (05:24)
[2024-05-28 06:17] LABS: Vancomycin Trough 7.8 ug/ml (5-20)
[2024-05-28] MEDS: VANCOCIN 150 IV (06:40)
[2024-05-28 07:00] VITALS: BP 108/72
--- NOTE | 2024-05-28 07:26 | PHA.VAN.FU ---
Vancomycin Assessment / Plan
- Assessment
Renal Function: No New Labs Today
In the past 24 hrs, patient has been: Afebrile
Concomitant Antimicrobials: Cefepime, metronidazole
- Assessment - Therapeutic Drug Monitoring
Extrapolated Cmax (mcg/mL): 18.1
Peak level was drawn: Appropriately
Extrapolated Cmin (mcg/mL): 6.8
Trough Drawn: Appropriately
Levels were drawn: At steady state
Calculated AUC (mcg*h/mL): 280
Calculated ke: 0.1389
Calculated half life (H): 5
Calculated Vd (L): 57.75
Calculated Vanc CL (ml/min): 133.69
- Dosing Plan
Adjust Regimen to: Vanc 1000mg IV q8H. Begin at 1400
New Regimen Predicts: AUC (400), Peak (25.8), Trough (9.8)
- Monitoring Plan
Level(s) appropriate: Recheck trough at minimum of weekly intervals, Repeat sooner for changes in renal function or clinical status
- Follow Up
Pharmacy will continue to follow.
Vancomycin Follow UP
- -
Patient Age: 38
Patient Sex: Male
Vancomycin Day #: 3
Indication: Skin And Soft Tissue
Requesting Provider: TAHIR
Pertinent Antimicrobial Allergies:
NKDA
Height / Weight:
Height 5 ft 10 in
Actual Weight 73.17 kg
Pertinent Past Medical History: DM
- Vital Signs / Lab Results
Temp Pulse Resp BP Pulse Ox
98.3 F 77 16 109/74 98
05/27/24 23:05 05/27/24 23:05 05/27/24 23:05 05/27/24 23:05 05/27/24 23:05
Lab Results - Hematology
05/26/24
04:21
WBC 9.0
Lab Results - Chemistry
05/26/24 05/27/24
04:21 06:36
BUN 18 17
Creatinine 0.6 L 0.7
Estimated Creat Clear > 125 > 125
Albumin 4.4
05/26/24 05/26/24
04:21 05:30
Lactic Acid 0.9 Cancelled
Microbiology Results
05/26/24 04:21 Influenza Types A & B (TRUDY) - Final
Nasal Swab Negative for Influenza A & B, NAAT
Negative results must be combined with clinical observations
and patient history.
Nucleic Acid Amplification test (NAAT)performed on the
[employer] platform.
Therapeutic Drug Monitoring
Vancomycin Peak 15.3 ug/ml (18-26) L 05/28/24 00:32
Vancomycin Trough 7.8 ug/ml (5-20) 05/28/24 05:23
--- NOTE | 2024-05-28 08:10 | VATNOTE ---
Called by PCN for 11.5 cm x 5 cm vancomycin infiltrate. Heat applied immediately by PCN and this nurse came to assess the infiltrate immediately. Pt with significant discomfort, redness, and slight induration at this time. Marked and measured by
this nurse. Contacted with information for hyaluronidase order.
[2024-05-28] MEDS: LIDOCAINE 4% PATCH 1 PATCH TOPICAL (08:28)
[2024-05-28 08:30] VITALS: BP 122/85
[2024-05-28] MEDS: HYLENEX 150 UNITS SC (08:46)
[2024-05-28 09:00] VITALS: BP 128/85
--- NOTE | 2024-05-28 09:09 | W.PN.ID1 ---
Date of Service
Date of Service: May 28, 2024
Today's Communication
Transition Vancomycin, cefepime, metronidazole to Augmentin 875mg po bid and doxycycline 100mg pi bid through 06/01/24.
Assessment / Plan
# RUE phlebitis
- peripheral IV dc'd
- Continue warm compress
# Moderate diabetic foot infection of the right great toe
# Uncontrolled diabetes mellitus, A1c 12.8
- MRI no osteomyelitis
-Cellulitis improving
- no need for IV access.
- Transition Vancomycin, cefepime, metronidazole to Augmentin 875mg po bid and doxycycline 100mg pi bid through 06/01/24.
- recommend tight glucose control.
Chief Complaint
-: Cellulitis
Subjective / Review of Systems
IV Vancomycin infiltrated left forearm + pain.
Vital Signs / Physical Exam
Vital Signs
Vital Signs
Temp Pulse Resp BP Pulse Ox
97.5 F 85 16 122/85 99
05/28/24 08:30 05/28/24 08:30 05/28/24 08:30 05/28/24 08:30 05/28/24 08:30
Physical Exam
Constitutional: Non-toxic
Extremities: Other (left forearm + induration and pink erythema over previous pIV)
Wound: Other (Right great toe decreasing erythema, plantar wound with dried blood)
Neurological: AO x 3
Objective Data
Lab Data
Lab Results
05/26/24 04:21
ESR 17 mm/hour (0-20) 05/26/24 04:21
PT 13.1 Sec (11.4-14.6) 05/26/24 04:21
INR 0.95 05/26/24 04:21
APTT 28.4 Sec (23.4-35.0) 05/26/24 04:21
Estimated Creat Clear > 125 ml/min 05/27/24 06:36
Lactic Acid Cancelled 05/26/24 05:30
Total Bilirubin 0.5 mg/dl (0.2-1.3) 05/26/24 04:21
AST 20 U/L (17-59) 05/26/24 04:21
ALT 21 U/L (0-50) 05/26/24 04:21
Alkaline Phosphatase 88 U/L (38-126) 05/26/24 04:21
C-Reactive Protein 30.00 mg/L (0.0-10.00) H 05/26/24 04:24
Most recent labs reviewed.
Micro Results:
05/26/24 16:08 MRSA Screen - Final
Nose No Methicillin Resistant Staphylococcus aureus isolated.
05/26/24 04:21 Influenza Types A & B (TRUDY) - Final
Nasal Swab Negative for Influenza A & B, NAAT
Negative results must be combined with clinical observations
and patient history.
Nucleic Acid Amplification test (NAAT)performed on the
[employer] platform.
05/26/24 MRI LE: Superficial localized soft tissue edema versus a skin blister at the medial aspect of the distal first toe. Recommend direct visualization. Mild bone marrow edema in the first distal phalanx without T1 hypointense marrow replacement.
Reactive bone marrow edema would be favored over the early changes of acute osteomyelitis.
[2024-05-28 09:16] LABS: Blood Urea Nitrogen 18 mg/dl (9-20); Calcium 9.7 mg/dl (8.4-10.2); Carbon Dioxide 22 mmol/L (22-30); Chloride 102 mmol/L (98-107); Estimated Creatinine Clearance > 125 ml/min; Glucose 231 mg/dl (70-99); Potassium 3.8 mmol/L (3.5-5.1); Sodium 137 mmol/L (135-145); eGFR > 60.00
[2024-05-28 09:28] LABS: Glucose - Point of Care 220 mg/dl (70-99)
[2024-05-28 09:30] VITALS: BP 118/76
[2024-05-28 10:00] VITALS: BP 111/79
--- NOTE | 2024-05-28 10:10 | CON.MD ---
Consultation - Medical
-
Consulted for right toe wound. 38 year old male with history of uncontrolled Diabetes Mellitus presented to the ED with swelling and redness in the right foot and draining right toe ulcer. Patient has a history of scabbing at the medial great toes
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 He noticed the right toe became red and swollen over a 2 day period and tried to open the blister, expressing blood and fluid. Redness and
swelling increased in severity and he presented to the ED. He denies neuropathy and states he has not been taking medication for his diabetes due to lapse in insurance coverage. He denies fever/chills.
On exam, right foot with resolving edema and erythema as shown by post inflammatory hyperpigmentation. Open blister 1x1 cm noted right hallux plantar medial aspect at the IPJ. Purulent drainage expressed. Excisional debridement of blister skin
performed revealing normal granulation tissue with central ulcer which does not probe to bone. After debridement, no further purulence on palpation noted. No soft tissue necrosis present. Patient has a significant rigid pes planus foot deformity
with callous noted at the left hallux plantar medial IPJ with no ulceration present. Pedal pulses palpable. Diminished reaction to painful stimuli noted indicating peripheral neuropathy. MRI RLE shows localized soft tissue edema and mild bone
marrow edema of the distal phalanx without [id number] marrow replacement. Patient is afebrile with no elevated WBC. Hgb A1c 12.8%
Impression/ Plan
-Resolving cellulitis right hallux with infected blister
Excisional debridement of blister and removal of all residual drainage/purulence.
Central wound does not probe to bone. Underlying tissue healthy and granular.
Stable for discharge with oral antibiotic as per ID.
Discussed daily dressing changes and avoiding getting the wound wet in the shower. Surgical shoe ordered
Will follow up in my office 5-7 days after discharge.
-Uncontrolled DM with peripheral neuropathy
-Pes planus deformity with chronic callous formation bilateral hallux interphalangeal joint
[2024-05-28] MEDS: MAXIPIME IV (10:28)
[2024-05-28] MEDS: STERILE WATER FOR INJECTION IV (10:31)
[2024-05-28] MEDS: VISBIOME 2 CAP PO (10:35)
[2024-05-28] MEDS: NOVOLOG FLEXPEN-LOW RESISTANCE 2 UNITS SC ×2 (10:35→13:10)
[2024-05-28] MEDS: AUGMENTIN 875 MG/125 MG 1 TABLET PO (10:35)
[2024-05-28] MEDS: VIBRAMYCIN 100 MG PO (10:35)
[2024-05-28] MEDS: NOVOLOG FLEXPEN 7 UNITS SC ×2 (10:36→13:10)
--- NOTE | 2024-05-28 11:16 | CM ---
Addendum entered by Isabela Rivera 05/28/24 14:36:
Plan: Discharge to home today; will transport self home
Original Note:
Met with patient this morning; reported he will transport self home when discharged
Plan: discharge to home when medically stable; no needs
--- NOTE | 2024-05-28 11:23 | W.PN.HOSP.TC ---
Today's Communication/Plan
-
Discharge later today.
Watch arm
Assessment / Plan
Assessment / Plan
Came with right big toe swelling and erythema
Foot x-ray reviewed by me- soft tissue swelling with subcutaneous gas no osteo.
MRI- Superficial localized soft tissue edema versus a skin blister at the medial aspect of the distal first toe. Recommend direct visualization.
Mild bone marrow edema in the first distal phalanx without T1 hypointense marrow replacement. Reactive bone marrow edema would be favored over the early changes of acute osteomyelitis.
Pleasant
Awake alert oriented
Cardiovascular system S1-S2 appreciated
Chest clear to auscultation
Right foot big toe with an ulcer enlargement of the big toe and edema noted
Dry ulcer on the medial aspect of the left big toe
# Diabetic foot infection
Excisional debridement of blister and removal of all residual drainage/purulence by podiatry today
ID eval apprePodiatry eval
Patient may need fitted shoes through podiatry office
Surgical shoe provided from here
Follow-up with podiatry in their office
Antibiotics changed to Augmentin and doxycycline for another 4 days
# Left upper extremity phlebitis IV discontinued hyaluronidase and warm compress ordered. Redness Much better per nursing. There was only mild redness and no edema when I evaluated. Normal pulses
# Diabetes-on pioglitazone as outpatient
Could not tolerate metformin
Stopped pioglitazone
Started Lantus and NovoLog
Accu-Cheks and sliding scale coverage
Diabetic education, dietary consultation
Teach patient how to do insulin-patient has planned
He is aware that he needs to get further adjustments through PCP
# Mild hyponatremia-follow likely secondary to elevated sugars
# Left shoulder pain impingement of the tendon and arthritis discussed with the patient
# DVT prophylaxis-Lovenox
# Full code
Discussed with nursing at bed side
Discussed with the patient regarding orthopedic follow-up
Podiatry follow-up
Insulin administration
More than 30 minutes spent in discharge including
Final examination of the patient
Summarizing hospital stay
Instructions for continuing care to all relevant caregivers
Preparation of discharge records, prescriptions, and referral forms
Total time spent (in minutes): 35 min
Anticipated Discharge: Today
Subjective/Interval History
-
Date of Service: May 28, 2024
Objective Data
-
Labs:
Laboratory Results
05/28/24
00:32
Sodium 137
Potassium 3.8
Chloride 102
Carbon Dioxide 22
BUN 18
Creatinine 0.6 L
Glucose 231 H
Calcium 9.7
Vital Signs:
Vital Signs
Temp Pulse Resp BP Pulse Ox
97.9 F 83 18 111/79 98
05/28/24 10:00 05/28/24 10:00 05/28/24 10:00 05/28/24 10:00 05/28/24 10:00
I&O
05/27/24 05/28/24 05/29/24
06:59 06:59 06:59
Intake Total 980 / 980 1310 / 1310
Balance 980 / 980 1310 / 1310
[2024-05-28 13:06] LABS: Glucose - Point of Care 214 mg/dl (70-99)
[2024-05-28 15:03] VITALS: BP 121/87
--- NOTE | 2024-05-29 07:38 | W.DS.TRANS ---
Addendum entered and electronically signed by Melania Turcios MD 05/29/24 07:39:
Dictation- [id number]
Original Note:
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
-
Discharge Instructions:
Discharge Diagnosis/Procedures Cellulitis
Poorly controlled diabetes
Phlebitis arm
Left supraspinatus impingement
Arthritis of left glenohumeral and
acromioclavicular joints-shoulder
Diet Diabetic, Carb Controlled
Activity As tolerated
Driving Restrictions As prior to admission
Instructions:
Stand-Alone Forms:
Changes to Home Medications: Yes
Discharge Medications:
DC Medications w/original date entered in [employer]
amoxicillin 875 mg-potassium clavulanate 125 mg tablet 1 tab PO Q12 Infection #9 tabs 05/28/24
blood sugar diagnostic (Accu-Chek Guide test strips) #200 ea 05/28/24
doxycycline hyclate 100 mg capsule 100 mg PO Q12 Infection #9 caps 05/28/24
insulin aspart U-100 100 unit/mL (3 mL) subcutaneous pen 8 unit (0.08 mL) SC AC Diabetes #15 mL 05/28/24
insulin glargine-yfgn 100 unit/mL (3 mL) subcutaneous pen (Semglee (insulin glargine-yfgn) Pen) 18 unit (0.18 mL) SC QPM Diabetes #15 mL 05/28/24
lancets (Accu-Chek Softclix Lancets) #200 ea 05/28/24
pen needle, diabetic 29 gauge x 1/2' #100 ea 05/28/24
Home Medication Changes
all above new
Pending Results: No
== END 2024-05-28 16:07 | disposition home or self-care (01) | DRG 603 ==
LOC: 1 ACUTE 04:30
PROVIDERS: ADMITTING PHYSICIAN Internal Medicine; ATTENDING PHYSICIAN Hospitalist; EMERGENCY PHYSICIAN Student in an Organized Health Care Education/Training Program; OTHER PHYSICIAN Internal Medicine Infectious Disease; OTHER PHYSICIAN Podiatrist Foot & Ankle Surgery
DX: L03.031 Cellulitis of right toe (principal); E11.621 Type 2 diabetes mellitus with foot ulcer; L97.509 Non-pressure chronic ulcer of other part of unspecified foot with unspecified severity; Z11.52 Encounter for screening for COVID-19; E11.42 Type 2 diabetes mellitus with diabetic polyneuropathy; E11.65 Type 2 diabetes mellitus with hyperglycemia; M21.40 Flat foot [pes planus] (acquired), unspecified foot
CPT/HCPCS: 73030; 73630; 73718; 80048; 80053; 80202; 82962; 83036; 83605; 84145; 85025; 85610; 85652; 85730; 86140; 87070; 87502; 87811; 99285